=== PATIENT | female | born 1940 | race Caucasian/White ===

== ENCOUNTER 2016-06-09 09:55 | Outpatient (CLI) | payer MEDICARE, OTHER | END 2016-06-09 09:56 | disposition home or self-care (01) | DX: E11.9 Type 2 diabetes mellitus without complications (principal) ==

== ENCOUNTER 2016-07-28 13:24 | Outpatient (CLI) | payer MEDICARE, OTHER | END 2016-07-28 13:25 | disposition home or self-care (01) | DX: I42.9 Cardiomyopathy, unspecified (principal); I08.3 Combined rheumatic disorders of mitral, aortic and tricuspid valves ==

== ENCOUNTER 2016-08-03 12:29 | Outpatient (CLI) | payer MEDICARE, OTHER | END 2016-08-03 12:30 | disposition home or self-care (01) | DX: E04.1 Nontoxic single thyroid nodule (principal) ==

== ENCOUNTER 2016-10-19 07:24 | Outpatient (CLI) | payer MEDICARE, OTHER ==
[2016-10-19 13:29] LABS: ALBUMIN/GLOBULIN RATIO 1.4 (1.0-2.2); BILIRUBIN,TOTAL 0.7 mg/dL (0.2-1.0); BUN - BLOOD UREA NITROGEN 14 mg/dL (6-20); CALCIUM 9.2 mg/dL (8.5-10.3); CARBON DIOXIDE - CO2 30 mmol/L (21-32); CHLORIDE 99 mmol/L (101-111); CHOL/HDL RATIO 2.8 (<4.4); CHOLESTEROL 111 mg/dL; GFR - MDRD 54 (>89); GLUCOSE 145 mg/dL (70-100); HDL CHOLESTEROL 40 mg/dL; LDL/HDL RATIO 1.1 (<4.4); POTASSIUM 3.7 mmol/L (3.5-5.0); SODIUM 140 mmol/L (135-145); TOTAL PROTEIN 6.7 g/dL (6.7-8.2); TRIGLYCERIDES 130 mg/dL; VLDL CHOLESTEROL 26 mg/dL
[2016-10-19 13:43] LABS: HEMOGLOBIN A1C 0.84 g/dL
== END 2016-10-19 07:25 | disposition home or self-care (01) ==
LOC: LAB.WCP 07:24
PROVIDERS: ATTEND Physician Assistant Medical
DX: E11.9 Type 2 diabetes mellitus without complications (principal)
CPT/HCPCS: 36415; 80053; 80061; 83036

== ENCOUNTER 2017-01-20 08:00 | Outpatient (CLI) | payer MEDICARE, OTHER ==
[2017-01-20 13:59] LABS: ALBUMIN/GLOBULIN RATIO 1.2 (1.0-2.2); BILIRUBIN,TOTAL 0.9 mg/dL (0.2-1.0); CALCIUM 9.5 mg/dL (8.5-10.3); CREATININE 0.9 mg/dL (0.4-1.0); POTASSIUM 3.7 mmol/L (3.5-5.0); TOTAL PROTEIN 7.3 g/dL (6.7-8.2)
[2017-01-20 14:12] LABS: HEMOGLOBIN A1C 0.79 g/dL
== END 2017-01-20 08:01 | disposition home or self-care (01) ==
LOC: LAB.WCP 08:00
PROVIDERS: ATTEND Physician Assistant Medical
DX: E11.9 Type 2 diabetes mellitus without complications (principal); E03.9 Hypothyroidism, unspecified
CPT/HCPCS: 36415; 80053; 82043; 83036; 84443

== ENCOUNTER 2017-04-19 15:00 | Outpatient (CLI) | payer MEDICARE, OTHER ==
[2017-04-19 14:31] LABS: HEMOGLOBIN A1C 0.81 g/dL
[2017-04-19 14:53] LABS: ALBUMIN/GLOBULIN RATIO 1.2 (1.0-2.2); BILIRUBIN,TOTAL 0.5 mg/dL (0.2-1.0); BUN - BLOOD UREA NITROGEN 14 mg/dL (6-20); CALCIUM 9.4 mg/dL (8.5-10.3); CARBON DIOXIDE - CO2 28 mmol/L (21-32); CHLORIDE 101 mmol/L (101-111); CHOL/HDL RATIO 2.4 (<4.4); CHOLESTEROL 110 mg/dL; CREATININE 0.9 mg/dL (0.4-1.0); GFR - MDRD 61 (>89); GLUCOSE 154 mg/dL (70-100); HDL CHOLESTEROL 45 mg/dL; LDL/HDL RATIO 0.8 (<4.4); POTASSIUM 3.8 mmol/L (3.5-5.0); SODIUM 139 mmol/L (135-145); TOTAL PROTEIN 7.2 g/dL (6.7-8.2); TRIGLYCERIDES 135 mg/dL; VLDL CHOLESTEROL 27 mg/dL
== END 2017-04-19 15:01 | disposition home or self-care (01) ==
LOC: LAB.WCP 15:00
PROVIDERS: ATTEND Physician Assistant Medical
DX: E11.9 Type 2 diabetes mellitus without complications (principal)
CPT/HCPCS: 36415; 80053; 80061; 83036

== ENCOUNTER 2017-07-08 13:28 | Outpatient (CLI) | payer MEDICARE, OTHER ==
--- NOTE | 2017-07-11 16:14 | Mammography Report ---
DIGITAL SCREENING MAMMOGRAM: 07/08/2017 CLINICAL INDICATION: A 76-year-old, for screening. COMPARISON: 07/2015, 01/2014, 12/2012, 08/2011, 08/2010, 07/2009. TECHNIQUE: Routine CC and MLO projections were obtained of the breasts. Bilateral laterally exaggerated craniocaudal views. FINDINGS: The breasts demonstrate scattered fibroglandular densities bilaterally. Coarse, typically benign calcifications are present. No suspicious masses, clustered microcalcifications, or regions of architectural distortion are identified. IMPRESSION: BENIGN FINDINGS. RECOMMENDATION: ROUTINE ANNUAL SCREENING UNLESS OTHERWISE CLINICALLY INDICATED. BIRADS CATEGORY 2-BENIGN FINDINGS. STANDARD QUALIFYING STATEMENTS: 1. This examination was reviewed with the aid of Computer-Aided Detection (CAD). 2. A negative or benign imaging report should not delay biopsy if clinically suspicious findings are present. Consider surgical consultation if warranted. More than 5% of cancers are not identified by imaging. 3. Dense breasts may obscure an underlying neoplasm. TD: 07/11/2017 16:13
== END 2017-07-08 13:29 | disposition home or self-care (01) ==
LOC: DI.N 13:28
PROVIDERS: ATTEND Physician Assistant Medical
DX: Z12.31 Encounter for screening mammogram for malignant neoplasm of breast (principal)
CPT/HCPCS: 77067

== ENCOUNTER 2017-07-25 07:53 | Outpatient (CLI) | payer MEDICARE, OTHER ==
[2017-07-25 13:11] LABS: CREATININE 0.8 mg/dL (0.4-1.0)
[2017-07-25 13:22] LABS: HB2 TOTAL 13.7 g/dL; HEMOGLOBIN A1C 0.78 g/dL; HEMOGLOBIN A1C % 7.4 % (4.6-6.2)
== END 2017-07-25 07:54 | disposition home or self-care (01) ==
LOC: LAB.WCP 07:53
PROVIDERS: ATTEND Physician Assistant Medical
DX: E11.9 Type 2 diabetes mellitus without complications (principal)
CPT/HCPCS: 36415; 80048; 83036

== ENCOUNTER 2017-08-14 12:55 | Inpatient (IN) | payer MEDICARE, OTHER ==
--- NOTE | 2017-08-14 13:06 | ED Physician Documentation ---
History of Present Illness - Stated complaint Stated Complaint: DIFF BREATHING - Additonal information Additional information: hx from pt and family 76 f hx COPD no hx CAD CHF cough for few days chest pressure like an elephant started last night more soa and gurgling today no fever cough + leg edema - not new no bloody black BM tried nebs at home s relief Review of Systems Constitutional: denies: Fever, Chills Cardiac: reports: Chest pain / pressure Respiratory: reports: Dyspnea, Cough. denies: Wheezing GI: denies: Abdominal Pain, Nausea, Vomiting Musculoskeletal: reports: Extremity swelling Endocrine: denies: Easy bruising / bleeding Immunocompromised: denies: Immunocompromised PD PAST MEDICAL HISTORY - Present Medications Home Medications: Ambulatory Orders Medication Instructions Recorded Confirmed Albuterol Sulf [Ventolin Hfa 2 puffs INH Q4HR PRN 08/14/17 08/14/17 Inhaler] Aspirin [Aspirin EC] 81 mg PO DAILY 08/14/17 08/14/17 Carvedilol [Coreg] 25 mg PO BID 08/14/17 08/14/17 Cholecalciferol (Vitamin D3) 1 cap PO DAILY 08/14/17 08/14/17 [Vitamin D3] Fluticasone/Salmeterol [Advair 1 puffs INH BID 08/14/17 08/14/17 250-50 Diskus] Insulin Aspart [Novolog Flexpen] 1 - 10 unit SUBQ ACHS 08/14/17 08/14/17 Insulin Glargine [Lantus Solostar] 43 unit SUBQ DAILY 08/14/17 08/14/17 Levothyroxine [Synthroid] 100 mcg PO QDAC 08/14/17 08/14/17 Simvastatin [Zocor] 20 mg PO QPM 08/14/17 08/14/17 Telmisartan/Hydrochlorothiazid 1 each PO DAILY 08/14/17 08/14/17 [Micardis Hct 80-25 mg Tablet] amLODIPine [Norvasc] 5 mg PO DAILY 08/14/17 08/14/17 metFORMIN [Glucophage] 500 mg PO BIDWM 08/14/17 08/14/17 - Allergies Allergies/Adverse Reactions: Allergies Allergy/AdvReac Type Severity Reaction Status Date / Time Sulfa (Sulfonamide Allergy Anaphylaxis Verified 08/14/17 13:07 Antibiotics) PD ED PE NORMAL - Vitals Vital signs reviewed: Yes - General General: Alert and oriented X 3, Other (resp distress, merritt) - Neck Neck: Supple, no meningeal sign - Cardiac Cardiac: RRR - Respiratory Respiratory: No: No respiratory distress (severe resp distress, labored tachypneic, wet all the way up yan, no wheeze) - Derm Derm: Other (merritt face) - Extremities Extremities: No: No edema (+ yan symm pitting edema) - Neuro Neuro: Alert and oriented X 3, clinical training specialist 2-12 intact, No motor deficit, Normal speech Results - Vitals Vitals: Vital Signs - 24 hr 08/14/17 08/14/17 08/14/17 13:03 13:22 13:23 Temperature 37.2 C Heart Rate 85 76 68 Respiratory 24 34 H Rate Blood Pressure 143/88 H 143/88 H O2 Saturation 84 L 100 08/14/17 13:59 Temperature Heart Rate 68 Respiratory Rate Blood Pressure O2 Saturation Oxygen O2 Source BIPAP - EKG (time done) 1306 Rate: Rate (enter#) Rhythm: NSR Catharpin: Normal Ischemia: Other (TWI III) 1356 Rate: Rate (enter#) (65) Rhythm: NSR Catharpin: Normal Intervals: Normal CO Ischemia: Non specific changes - Labs Labs: Laboratory Tests 08/14/17 08/14/17 08/14/17 13:01 13:01 13:01 WBC 9.9 RBC 4.08 L Hgb 11.7 L Hct 34.9 L MCV 85.7 MCH 28.6 MCHC 33.4 RDW 15.5 H Plt Count 276 MPV 8.9 Neut # 7.6 H Lymph # 0.8 L Ogle # 1.4 H Eos # 0.0 Baso # 0.1 Absolute Nucleated RBC 0.00 Nucleated RBC % 0.0 Bld Gas Analysis Time Sample Site ABG pH ABG pCO2 ABG pO2 ABG HCO3 ABG Total CO2 ABG O2 Saturation ABG Base Excess Carlos Test O2 Delivery Device FiO2 EPAP IPAP Sodium 135 Potassium 4.0 Chloride 98 L Carbon Dioxide 25 Anion Gap 12.0 BUN 38 H Creatinine 1.3 H Estimated GFR (MDRD) 40 L Glucose 229 H Calcium 9.0 Troponin I 0.05 B-Natriuretic Peptide 08/14/17 08/14/17 13:01 13:50 WBC RBC Hgb Hct MCV MCH MCHC RDW Plt Count MPV Neut # Lymph # Ogle # Eos # Baso # Absolute Nucleated RBC Nucleated RBC % Bld Gas Analysis Time 1353 Sample Site LEFT RADIAL ABG pH 7.44 ABG pCO2 33 L ABG pO2 186 H* ABG HCO3 22.0 ABG Total CO2 23.0 ABG O2 Saturation 99 H ABG Base Excess -1.5 Carlos Test POSITIVE O2 Delivery Device BiPAP FiO2 60.00 EPAP 5 IPAP 12 Sodium Potassium Chloride Carbon Dioxide Anion Gap BUN Creatinine Estimated GFR (MDRD) Glucose Calcium Troponin I B-Natriuretic Peptide 755 H - Rads (name of study) CXR Radiology: See rad report (cardiomegaly and pulm edema) PD MEDICAL DECISION MAKING - ED course ED course: 76 f no hx CAD present with fairly acute new onset pulm edmea and resp failure placed on BiPAP with improved resp status after CXR confirmed pulm edema given asa lasix and nitro paste cause of new onset pulm edema a concern - certainly could be ACS - EKG X 2 s acute ischemia and first trop neg will admit to ICU for diuresis and cardiac wup spoke to hospitalist at 1435 - she declines to admit pt until serial enzymes have been done in the ED to rule out PR first, ordered 2nd trop and requested she come see the pt Departure - Departure Disposition: 66 [facility] DC/Xfer Clinical Impression: Renal insufficiency Respiratory failure Qualifiers: Chronicity: acute Respiratory failure complication: hypoxia Qualified Code(s): J96.01 - Acute respiratory failure with hypoxia Pulmonary edema Qualifiers: Chronicity: acute Qualified Code(s): J81.0 - Acute pulmonary edema Chest pain Qualifiers: Chest pain type: unspecified Qualified Code(s): R07.9 - Chest pain, unspecified Condition: Fair
[2017-08-14 13:22] LABS: BASOPHILS # (AUTO) 0.1 10^3/uL (0.0-0.1); BASOPHILS % (AUTO) 0.6 %; EOSINOPHILS % (AUTO) 0.1 %; HGB - HEMOGLOBIN 11.7 g/dL (12.0-16.0); LYMPHOCYTES # (AUTO) 0.8 10^3/uL (1.5-3.5); LYMPHOCYTES % (AUTO) 7.8 %; MEAN CORPUSCULAR HEMOGLOBIN 28.6 pg (27.0-31.0); MEAN CORPUSCULAR HGB CONC 33.4 g/dL (32.0-36.0); MEAN CORPUSCULAR VOLUME 85.7 fL (81.0-99.0); MEAN PLATELET VOLUME 8.9 fL (7.9-10.8); MONOCYTES # (AUTO) 1.4 10^3/uL (0.0-1.0); MONOCYTES % (AUTO) 14.4 %; NEUTROPHILS # (AUTO) 7.6 10^3/uL (1.5-6.6); NEUTROPHILS % (AUTO) 77.1 %; PLT - PLATELET COUNT 276 10^3/uL (130-450); RED BLOOD COUNT 4.08 10^6/uL (4.20-5.40); RED CELL DISTRIBUTION WIDTH 15.5 % (12.0-15.0); WHITE BLOOD COUNT 9.9 x10^3/uL (4.8-10.8)
[2017-08-14] MEDS ORDERED: FUROSEMIDE 40 MG/4 ML VIAL IVP STA (13:46)
[2017-08-14] MEDS ORDERED: ASPIRIN CHEW 81 MG TABLET PO STA (13:46)
[2017-08-14] MEDS ORDERED: NITROGLYCERIN 2% PASTE TOP STA (13:46)
[2017-08-14 13:48] LABS: CREATININE 1.3 mg/dL (0.4-1.0)
[2017-08-14 13:58] LABS: ABG PCO2 33 mmHg (34-45); ABG PH 7.44 (7.35-7.45)
--- NOTE | 2017-08-14 13:58 | XRAY Report ---
EXAM: CHEST RADIOGRAPHY EXAM DATE: 08/14/2017 01:26 PM. CLINICAL HISTORY: Altered mental status COMPARISON: Chest x-ray 12/23/2011. TECHNIQUE: 1 view. FINDINGS: Lungs/Pleura: Low lung volumes with pulmonary cephalization and hazy opacities in the perihilar regio ns. Mediastinum: Cardiomegaly. Atherosclerosis. Other: None. IMPRESSION: Cardiomegaly with pulmonary cephalization and hazy perihilar opacities suggestive of pulm onary edema. [facility] Referring Provider Line: [phone] SITE ID: [id number]
[2017-08-14 13:59] LABS: ABG BASE EXCESS -1.5 mmol/L (-2.0-3.0); ABG OXYGEN SATURATION 99 % (94-98); ALLEN TEST POSITIVE
[2017-08-14 14:02] LABS: ABG PO2 186 mmHg (80-100)
[2017-08-14] MEDS ORDERED: ACETAMINOPHEN 325 MG TABLET PO PRN (15:29)
[2017-08-14] MEDS ORDERED: ONDANSETRON 4 MG/2 ML VIAL IVP PRN (15:29)
[2017-08-14] MEDS ORDERED: ALBUTEROL NEB 2.5 MG/3 ML INH PRN ×2 (16:24→16:54)
[2017-08-14] MEDS: INSULIN ASPART 300 UNIT/3 ML PEN SUBQ SCH ×2 (17:37→21:35)
[2017-08-14] MEDS: SODIUM CHLORIDE FLUSH 0.9% 10 ML SYRINGE IVP PRN ×2 (17:38→19:35)
[2017-08-14] MEDS: FORMOTEROL FUMARATE NEB 20 MCG/2 ML INH SCH (18:05)
[2017-08-14] MEDS: BUDESONIDE 0.5 MG/2 ML NEB INH SCH (18:05)
--- NOTE | 2017-08-14 18:53 | HISTORY & PHYSICAL EXAMINATION ---
DATE OF SERVICE: 08/14/2017 Physician: Paola Sam MD CHIEF COMPLAINT: Shortness of breath. SOURCE OF HISTORY: At the time of admission, the patient was on BiPAP, most of the history was obtained from her daughter. HISTORY OF PRESENT ILLNESS: Ms. Ashli Cruz is a 76-year-old female with multiple chronic medical problems including type 2 diabetes, hypertension, and hypothyroidism. She also has history of COPD. The patient lives with her daughter; the daughter brought her to the ER today and she provided most of the history. The patient does not have reported history of coronary artery disease, although she saw a material hauler in [place] in the past was told that her heart was "okay." Reviewing our medical record, however, the patient had an echocardiogram in July 2016. At that time, she was found with left ventricular hypertrophy, normal ejection fraction between 50-55%, right heart enlargement, moderate mitral regurgitation and tricuspid regurgitation as well. Based on this echocardiogram, it seems that she does have history of right- sided heart failure. The patient's daughter tells me the patient has history of longstanding lymphedema for which she took Lasix. The Lasix made her go to the bathroom frequently. Therefore, she discontinued the Lasix several years ago. They do not know about history of heart failure. The patient's diabetes had been stable. Last hemoglobin A1c was between 6.8 and 7. The patient was fully functional, she was in her usual state of health up to about 3 days ago, at which time she started with cough and shortness of breath. Did not report chest discomfort. As she was coughing more, she became weak and dizzy. During the past few days, she developed some wheezes and her respiratory distress got progressively worse. She does not report weight gain or lower extremity swelling above her baseline. Around noontime on 08/14/2017, she asked her daughter to bring her to the ER as she felt being distressed. Upon presentation to the ER, the patient was found with respiratory distress and was started on noninvasive BiPAP ventilation. Her initial vital signs included temperature of 37.2, heart rate in the 80s, blood pressure 140/88, oxygen saturation 84%on room air, respiration rate of 34. Being on BiPAP she stabilized and when I was at the bedside in the ER, she reported improvement, breathing better. Reviewing the ER workup: Chest x-ray showed pulmonary edema. Laboratories showed negative troponin twice, elevated BNP 755, creatinine 1.3, BUN 38. ABG 7.44/33/186 and that was on 60% FIO2/on BiPAP 09/17. White blood cell count was normal at 9.9, hemoglobin 11.7. EKG showed nonspecific changes and right axis. Blood glucose was 229. PAST MEDICAL HISTORY 1. Type 2 diabetes/insulin-dependent. 2. Thyroid disease on thyroid supplements. 3. Hypertension. 4. Chronic obstructive pulmonary disease. SOCIAL HISTORY: The patient lives with her daughter. She is a nonsmoker, uses a cane and occasionally a walker to ambulate. Although the patient is a lifelong nonsmoker, she was exposed to secondhand smoke all her life. Both her mother and father were heavy smokers and her was a heavy smoker as well. PRIMARY CARE PROVIDER: HU Mei. FAMILY HISTORY: Positive for emphysema in the mother and coronary artery disease in the father who of heart disease at age 55. REVIEW OF SYSTEMS: Please see pertinent positives listed above at history of present illness. There was no additional complaint on the 12-point review. PHYSICAL EXAMINATION VITAL SIGNS: Please see listed above at history of present illness. GENERAL: The patient is a well-developed female who was on BiPAP. RESPIRATORY: Reasonably good air entry on BiPAP with decreased air entry above the bases and some crackling up to the midlung zones. CARDIOVASCULAR: S1, S2. Regular. I could not hear a pathologic murmur in the setting of transmitted airway sounds. ABDOMEN: Obese, benign. Bowel sounds present. LYMPH: Pitting pedal edema, minimal, bilaterally symmetric. NEUROLOGIC: Alert, oriented, nonfocal. PSYCHIATRIC: Cooperative. SKIN: Without jaundice or pallor. MUSCULOSKELETAL: Truncal obesity. OUTPATIENT MEDICATIONS: Included 1. Aspirin. 2. Insulin glargine. 3. Metformin. 4. Levothyroxine. 5. Simvastatin. 6. Advair. 7. NovoLog sliding scale. 8. Telmisartan. 9. Hydrochlorothiazide. 10. Albuterol. 11. Amlodipine. 12. Carvedilol. 13. Vitamin D. ASSESSMENT/ACTIVE ISSUES/DIAGNOSES 1. Acute congestive heart failure with history of right-sided heart failure and valvular heart disease. Most likely the patient has worsening mitral valve disease, which could contribute to her decompensation. She seems to be in left-sided heart failure today, not in right-sided as her previous echocardiogram described. 2. Acute renal failure in the setting of congestive heart failure exacerbation/ cardiac decompensation. Notably, the patient's baseline renal function is around 0.7. Today, creatinine is 1.3. This is more than a 30% increase, fulfilling the diagnosis for acute renal failure. 3. Ruling out for acute coronary syndrome. 4. Hyperglycemia/history of diabetes. 5. Hypoxic respiratory failure requiring noninvasive ventilation on BiPAP. 6. History of chronic obstructive pulmonary disease. Today, clinical examination and overall presentation does not suggest chronic obstructive pulmonary disease exacerbation. Primary etiology seems cardiac. PLAN AND ORDERS 1. Patient is admitted to the intensive care unit, requiring noninvasive ventilation. We will continue her on BiPAP and titrate off as tolerated. Emergency room physician started nitro paste and IV Lasix. We will continue. Follow electrolytes and renal function. We will replace electrolytes as appropriate. 2. Continue cycling troponins and monitor on telemetry. 3. Echocardiogram. 4. Regarding diabetes, we will continue long-acting insulin if the patient takes appropriate oral intake and cover blood glucose on additional sliding scale. 5. Regarding outpatient medications, I will hold metformin, telmisartan, and hydrochlorothiazide as the patient has acute kidney injury, plus her blood pressure will likely not tolerate IV Lasix, nitrate, plus all other diuretics. We will continue Coreg. 6. We will continue aspirin and Zocor as well. 7. Depending on the echocardiogram result, if the patient has severe valve abnormality, then we might need to call a material hauler to coordinate this patient's care. 8. Regarding renal failure, as it is in the setting of heart failure, the expectation is that renal function will paradoxically improve on diuresis. 9. Regarding chronic obstructive pulmonary disease, clinical picture does not suggest exacerbation. I will continue home inhalers. 10. Code status was discussed with the patient and with her daughter. She is FULL CODE. 11. The patient will need cardiology consultation that can be done as outpatient if we can stabilize and discharge her, or she might need to transfer to another facility. 12. Deep venous thrombosis prophylaxis. ATTESTATION: I certify that the reasonable expectation for this patient is to be hospitalized for at least 48 hours; however, to discharge or transfer to another facility in less than 96 hours. TD: 08/14/2017 18:52 MTDD
[2017-08-14] MEDS: FUROSEMIDE 40 MG/4 ML VIAL IVP SCH (19:35)
[2017-08-14] MEDS ORDERED: ATORVASTATIN 10 MG TABLET PO SCH (21:00)
[2017-08-14] MEDS: CARVEDILOL 12.5 MG TABLET PO SCH (21:35)
[2017-08-14] MEDS ORDERED: MIN OIL/DIMETHICON/COCONUT OIL 92 GM TUBE TOP PRN (22:34)
[2017-08-15] MEDS ORDERED: MORPHINE 2 MG/ML SYRINGE IVP PRN (00:15)
[2017-08-15] MEDS: SODIUM CHLORIDE FLUSH 0.9% 10 ML SYRINGE IVP SCH ×2 (00:20→09:59)
[2017-08-15] MEDS ORDERED: MORPHINE 2 MG/ML SYRINGE ONE (00:28)
[2017-08-15] MEDS ORDERED: FUROSEMIDE 40 MG/4 ML VIAL IVP STA (00:34)
[2017-08-15] MEDS: SODIUM CHLORIDE FLUSH 0.9% 10 ML SYRINGE IVP PRN (00:41)
[2017-08-15 01:12] LABS: ABG PH 7.45 (7.35-7.45)
[2017-08-15 01:13] LABS: ABG BASE EXCESS 2.6 mmol/L (-2.0-3.0); ABG HCO3 26.7 mmol/L (22.0-26.0); ABG OXYGEN SATURATION 95 % (94-98); ABG PCO2 40 mmHg (34-45); ABG PO2 79 mmHg (80-100); ABG TCO2 27.9 MMOL/L (21.0-29.0); ALLEN TEST NEGATIVE
--- NOTE | 2017-08-15 01:21 | XRAY Preliminary Report ---
Exam: XR CHEST 1 VIEW X-RAY IMPRESSION: 1. Confluent left lung base opacity could reflect atelectasis or pneumonia. 2. Minimal CHF appears improved from prior day. [facility] SITE ID: [id number]
--- NOTE | 2017-08-15 01:41 | XRAY Report ---
EXAM: CHEST RADIOGRAPHY EXAM DATE: 08/15/2017 01:08 AM. CLINICAL HISTORY: Worsening respiratory failure. COMPARISON: Prior day. TECHNIQUE: 1 view. FINDINGS: Lungs/Pleura: Diffuse mild interstitial opacities. More confluent left lung base opacity. No large ef fusion. No gross pneumothorax. Mediastinum: Moderate cardiomegaly. No mediastinal shift. Other: None. IMPRESSION: 1. Confluent left lung base opacity could reflect atelectasis or pneumonia. 2. Minimal CHF appears improved from prior day. [facility] Referring Provider Line: [phone] SITE ID: [id number]
[2017-08-15] MEDS ORDERED: AZITHROMYCIN INJ 500 MG in SODIUM CHLORIDE 0.9% 250 ML IV SCH (03:00)
[2017-08-15] MEDS ORDERED: cefTRIAXone 2 GM in SODIUM CHLORIDE 0.9% MINIBAG 100 ML IV SCH (03:00)
[2017-08-15] MEDS ORDERED: SODIUM CHLORIDE 0.9% 500 ML IV PRN (03:53)
[2017-08-15 04:19] LABS: BASOPHILS % (AUTO) 0.1 %; EOSINOPHILS % (AUTO) 0.1 %; HGB - HEMOGLOBIN 11.4 g/dL (12.0-16.0); LYMPHOCYTES # (AUTO) 0.5 10^3/uL (1.5-3.5); LYMPHOCYTES % (AUTO) 7.5 %; MEAN CORPUSCULAR HEMOGLOBIN 27.9 pg (27.0-31.0); MEAN CORPUSCULAR HGB CONC 32.6 g/dL (32.0-36.0); MEAN CORPUSCULAR VOLUME 85.7 fL (81.0-99.0); MEAN PLATELET VOLUME 8.3 fL (7.9-10.8); MONOCYTES # (AUTO) 0.9 10^3/uL (0.0-1.0); MONOCYTES % (AUTO) 12.6 %; NEUTROPHILS # (AUTO) 5.4 10^3/uL (1.5-6.6); NEUTROPHILS % (AUTO) 79.7 %; PLT - PLATELET COUNT 276 10^3/uL (130-450); RED BLOOD COUNT 4.07 10^6/uL (4.20-5.40); RED CELL DISTRIBUTION WIDTH 15.1 % (12.0-15.0); WHITE BLOOD COUNT 6.8 x10^3/uL (4.8-10.8)
[2017-08-15 04:29] LABS: ALBUMIN 3.5 g/dL (3.2-5.5); ALBUMIN/GLOBULIN RATIO 0.9 (1.0-2.2); BILIRUBIN,TOTAL 0.9 mg/dL (0.2-1.0); CALCIUM 8.3 mg/dL (8.5-10.3); CREATININE 1.1 mg/dL (0.4-1.0); TOTAL PROTEIN 7.3 g/dL (6.7-8.2)
[2017-08-15 04:40] LABS: MAGNESIUM 1.8 mg/dL (1.7-2.8); PHOSPHORUS 4.6 mg/dL (2.5-4.6)
[2017-08-15] MEDS: POTASSIUM CHLORIDE 20 MEQ TABLET PO SCH ×2 (05:28→11:14)
[2017-08-15] MEDS: FUROSEMIDE 40 MG/4 ML VIAL IVP SCH (05:28)
[2017-08-15] MEDS: BUDESONIDE 0.5 MG/2 ML NEB INH SCH (05:41)
[2017-08-15] MEDS: FORMOTEROL FUMARATE NEB 20 MCG/2 ML INH SCH (05:44)
[2017-08-15 06:09] LABS: ABG BASE EXCESS 0.9 mmol/L (-2.0-3.0); ABG HCO3 25.9 mmol/L (22.0-26.0); ABG OXYGEN SATURATION 96 % (94-98); ABG PCO2 43 mmHg (34-45); ABG PO2 83 mmHg (80-100); ABG TCO2 27.2 MMOL/L (21.0-29.0); ALLEN TEST NEGATIVE
[2017-08-15] MEDS ORDERED: LEVOTHYROXINE 100 MCG TABLET PO SCH (07:00)
[2017-08-15] MEDS ORDERED: POTASSIUM CHLOR 20 MEQ/100 ML 20 MEQ/100 ML BAG IV SCH ×2 (07:00→08:00)
[2017-08-15] MEDS: POTASSIUM CHLOR 10 MEQ/100 ML 10 MEQ/100 ML BAG IV SCH ×4 (08:06→12:05)
[2017-08-15] MEDS: INSULIN ASPART 300 UNIT/3 ML PEN SUBQ SCH ×2 (08:30→12:21)
[2017-08-15] MEDS ORDERED: ENOXAPARIN 40 MG/0.4 ML SYRINGE SUBQ SCH (09:00)
[2017-08-15] MEDS ORDERED: ASPIRIN EC 81 MG TABLET PO SCH (09:00)
[2017-08-15] MEDS ORDERED: CHOLECALCIFEROL 1,000 UNIT TABLET PO SCH (09:00)
[2017-08-15] MEDS ORDERED: POLYETHYLENE GLYCOL 3350 17 GM PACKET PO SCH (09:00)
[2017-08-15] MEDS ORDERED: INSULIN GLARGINE 300 UNIT/3 ML PEN SUBQ SCH (09:00)
[2017-08-15] MEDS ORDERED: FAMOTIDINE 20 MG/50 ML 50 ML IV SCH (09:00)
[2017-08-15] MEDS: CARVEDILOL 12.5 MG TABLET PO SCH (10:10)
[2017-08-15] MEDS ORDERED: ENOXAPARIN 80 MG/0.8 ML SYRINGE SUBQ ONE (10:45)
[2017-08-15] MEDS ORDERED: IOPAMIDOL-300 100 ML VIAL ONE (12:20)
--- NOTE | 2017-08-15 13:06 | Discharge Plan ---
Discharge Plan Disposition: 02 Transfer Acute Care Hosp Condition: Serious Activity Restrictions: Activity as Tolerated No Smoking: If you smoke, Please STOP! Call for help. Follow-up with: Grace Christian PA-C [Primary Care Provider] -
[2017-08-15 13:33] VITALS: BP 126/65
--- NOTE | 2017-08-15 17:29 | DISCHARGE SUMMARY ---
Physician: Lauren Sam MD DATE OF ADMISSION: 08/14/2017 DATE OF DISCHARGE: 08/15/2017 Please note that the patient is getting discharged/transferred to an acute care hospital, to the [facility] in [place], requiring higher level of care including cardiology, pulmonology, and intensive care. CODE STATUS: FULL CODE. DISCHARGE DIAGNOSES 1. Respiratory failure/hypoxemic requiring noninvasive ventilation on BiPAP. a. Severe right-sided congestive heart failure, final read of echocardiogram is pending, but this was the preliminary diagnosis. b. Left-sided heart failure with pulmonary edema and suspect worsening mitral valve disease. c. Ruled out for acute coronary syndrome, had 3 sets of negative troponins ; EKG was abnormal but did not show acute ischemic sign. d. Pulmonary embolism is possible with right-sided heart failure, and per cardiology recommendation a CT angiograph of the chest was ordered; however, it was not completed prior to transfer, and we recommend this study to be completed when the patient arrives to [place]. Of note, she was covered on therapeutic Lovenox anticoagulation. e. Possible pneumonia; although the patient was afebrile, did not have elevated white blood cell count, and the clinical history did not suggest pneumonia, due to lung infiltrates and significant respiratory failure/critical illness, she received community- acquired pneumonia coverage. f. History of chronic obstructive pulmonary disease, was found without exacerbation during this hospital admission; however, given the severity of respiratory failure, received treatment with steroids, proton pump inhibitor, and Xopenex. 2. Acute renal failure/acute kidney injury in the setting of congestive heart failure. Baseline creatinine is around 0.7 and admission creatinine was 1.3. Creatinine paradoxically improved on diuretic therapy, and discharge creatinine was 1.1. 3. Hyperglycemia/history of insulin-dependent diabetes, blood glucose was controlled on insulin sliding scale during the hospital stay. 4. Encephalopathy/lethargy in the setting of critical illness. DISCHARGE MEDICATIONS: Patient was discharged with ACLS transfer to the [facility] in [place]. Prior to discharge she was therapeutically covered and anticoagulated with Lovenox. She received nitroglycerin paste and was discharged, continuing noninvasive ventilation on BiPAP. Prior to discharge she also received antibiotics for pneumonia, steroids for COPD, and further management is signed out and will be deferred to the [place] team. DISCHARGE CONDITION VITAL SIGNS: Vital signs were stable. Reviewed per electronic medical record. Blood pressure was 136/65, heart rate 80, temperature 37.1, respiratory rate 28 on the BiPAP, BiPAP was at 12/6, 50% FiO2; oxygen saturation on that setting was 100%. GENERAL: Patient was lethargic, but arousable. Neurologically nonfocal. RESPIRATORY: Good air entry on BiPAP; however, rhonchi and crackles still between the bases and mid lung zones. ABDOMEN: Benign. CARDIOVASCULAR: S1, S2. Regular. BRIEF PRESENTATION AND HOSPITAL COURSE: Patient is a 76-year-old white female who was admitted to the [facility] with cough, chest discomfort, and shortness of breath. She was found with respiratory failure and required noninvasive ventilation on BiPAP. She ruled out for acute coronary syndrome. Chest x-ray showed pulmonary edema, and the impression was that she decompensated due to congestive heart failure exacerbation; on clinical grounds and based on the chest x-ray, also considering elevated BNP around 600, she was in left-sided heart failure. Notably, she has an echocardiogram in our system from July 2016 that showed left ventricular hypertrophy, significant right-sided heart enlargement, moderate mitral regurgitation ,and moderate tricuspid regurgitation. At that time, a year ago, she had normal ejection fraction about 50% to 55%. On the first hospital day, she was diuresed and responded well, being overall 1200 mL negative with her fluid balance. She was treated with nitrates and was continued on beta polina. Overnight, however, she had worsening respiratory distress and required adjustment of BiPAP setting with increased pressures. She remained hypoxemic and could not tolerate being off the BiPAP. On the second hospital day, we tried to titrate her off the BiPAP, and, even for a short period of time, she could not tolerate it. Given her ongoing respiratory failure, actually worsening clinical situation, she had a repeat chest x-ray which showed significant cardiomegaly and resolving congestive heart failure; however, possibly a focal infiltrate. Therefore, she was started on pneumonia coverage as well. Notably, since admission, she was given steroids for possible COPD exacerbation, although she was not really wheezing, and her clinical presentation and workup suggested cardiac origin rather than pulmonary. Given her critical illness, however, she received treatment for all possible abnormalities. As she did not improve on aggressive treatment, I contacted the covering cardiology and intensive care at the [facility] in [place]. I spoke with Dr. Rojas, public affairs specialist, and Dr. Vasquez pattern technician. They graciously accepted this patient to transfer to their hospital, and that is how she was transferred. Time spent in the care of this patient was 1-1/2 hours, which included coordination of her care with Cardiology, Pulmonology, and Nursing regarding the transfer. More than 50 % of the time was spent with coordination of the care. cc: Grace Christian PA-C TD: 08/15/2017 16:42 HUY
== END 2017-08-15 14:00 | disposition short-term general hospital (02) | DRG 291 ==
LOC: ED 12:55 → ICU 15:29
PROVIDERS: ADMIT Internal Medicine; ATTEND Internal Medicine
DX: J96.01 Acute respiratory failure with hypoxia (principal); J81.0 Acute pulmonary edema; R07.89 Other chest pain; N28.9 Disorder of kidney and ureter, unspecified; J44.9 Chronic obstructive pulmonary disease, unspecified; I11.0 Hypertensive heart disease with heart failure; J18.9 Pneumonia, unspecified organism; J96.91 Respiratory failure, unspecified with hypoxia; G93.40 Encephalopathy, unspecified; I26.99 Other pulmonary embolism without acute cor pulmonale; J44.0 Chronic obstructive pulmonary disease with (acute) lower respiratory infection; N17.9 Acute kidney failure, unspecified; J44.1 Chronic obstructive pulmonary disease with (acute) exacerbation; Z68.42 Body mass index [BMI] 45.0-49.9, adult; I50.1 Left ventricular failure, unspecified; I50.814 Right heart failure due to left heart failure; E11.65 Type 2 diabetes mellitus with hyperglycemia; E03.9 Hypothyroidism, unspecified; I08.1 Rheumatic disorders of both mitral and tricuspid valves; I89.0 Lymphedema, not elsewhere classified; E66.9 Obesity, unspecified; Z77.22 Contact with and (suspected) exposure to environmental tobacco smoke (acute) (chronic); Z79.4 Long term (current) use of insulin; Z79.82 Long term (current) use of aspirin
CPT/HCPCS: 36415; 36600; 71045; 80048; 80053; 82803; 83735; 83880; 84100; 84484; 85025; 87150; 93005; 93306; 94640; 94660; 96374; 99283; 99284

== ENCOUNTER 2017-10-20 07:54 | Outpatient (CLI) | payer MEDICARE, OTHER ==
[2017-10-20 12:16] LABS: BASOPHILS % (AUTO) 0.4 %; EOSINOPHILS # (AUTO) 0.2 10^3/uL (0.0-0.7); EOSINOPHILS % (AUTO) 3.3 %; HGB - HEMOGLOBIN 13.7 g/dL (12.0-16.0); LYMPHOCYTES # (AUTO) 2.3 10^3/uL (1.5-3.5); LYMPHOCYTES % (AUTO) 31.7 %; MEAN CORPUSCULAR HEMOGLOBIN 28.9 pg (27.0-31.0); MEAN CORPUSCULAR HGB CONC 32.6 g/dL (32.0-36.0); MEAN CORPUSCULAR VOLUME 88.8 fL (81.0-99.0); MEAN PLATELET VOLUME 9.4 fL (7.9-10.8); MONOCYTES # (AUTO) 0.7 10^3/uL (0.0-1.0); MONOCYTES % (AUTO) 9.8 %; NEUTROPHILS % (AUTO) 54.8 %; PLT - PLATELET COUNT 297 10^3/uL (130-450); RED BLOOD COUNT 4.72 10^6/uL (4.20-5.40); RED CELL DISTRIBUTION WIDTH 16.4 % (12.0-15.0); WHITE BLOOD COUNT 7.2 x10^3/uL (4.8-10.8)
[2017-10-20 12:34] LABS: ALBUMIN 3.7 g/dL (3.2-5.5); ALBUMIN/GLOBULIN RATIO 1.2 (1.0-2.2); ALKALINE PHOSPHATASE 56 IU/L (42-121); ALT ALANINE AMINOTRANSFERASE 15 IU/L (10-60); AST ASPARTATE AMINOTRANSFERASE 25 IU/L (10-42); BILIRUBIN,TOTAL 0.5 mg/dL (0.2-1.0); BUN - BLOOD UREA NITROGEN 25 mg/dL (6-20); CALCIUM 9.5 mg/dL (8.5-10.3); CARBON DIOXIDE - CO2 30 mmol/L (21-32); CHLORIDE 98 mmol/L (101-111); CHOL/HDL RATIO 2.4 (<4.4); CHOLESTEROL 100 mg/dL; CREATININE 1.2 mg/dL (0.4-1.0); GFR - MDRD 43 (>89); GLUCOSE 133 mg/dL (70-100); HDL CHOLESTEROL 42 mg/dL; LDL CHOLESTEROL,CALCULATED 30 mg/dL; LDL/HDL RATIO 0.7 (<4.4); SODIUM 138 mmol/L (135-145); TOTAL PROTEIN 6.8 g/dL (6.7-8.2); VLDL CHOLESTEROL 28 mg/dL
[2017-10-20 12:51] LABS: HB2 TOTAL 15.6 g/dL; HEMOGLOBIN A1C 0.85 g/dL; HEMOGLOBIN A1C % 7.1 % (4.6-6.2)
== END 2017-10-20 07:55 | disposition home or self-care (01) ==
LOC: LAB.WCP 07:54
PROVIDERS: ATTEND Family Medicine
DX: I27.20 Pulmonary hypertension, unspecified (principal); E11.9 Type 2 diabetes mellitus without complications; I10 Essential (primary) hypertension
CPT/HCPCS: 36415; 80053; 80061; 83036; 83721; 85025

== ENCOUNTER 2017-12-15 06:40 | Day surgery (SDC) | payer MEDICARE, OTHER ==
[~2017-12-15 06:40] MED LIST: CYCLOPENTOLATE 1% OPHTH DROPS 2 ML ONE; KETOROLAC 0.45% OPHTH DROPS ONE; LACTATED RINGERS 1,000 ML IV ONE; PHENYLEPHRINE 2.5% OPHTH 2 ML DROPS ONE; PROPARACAINE 0.5% OPHTH DROPS 15 ML ONE
[2017-12-15] MEDS ORDERED: PHENYLEPHRINE 2.5% OPHTH 2 ML DROPS LEFTEYE ONE (06:58)
[2017-12-15] MEDS ORDERED: KETOROLAC 0.45% OPHTH DROPS LEFTEYE ONE (06:58)
[2017-12-15] MEDS ORDERED: CYCLOPENTOLATE 1% OPHTH DROPS 2 ML LEFTEYE ONE (06:58)
[2017-12-15] MEDS ORDERED: PROPARACAINE 0.5% OPHTH DROPS 15 ML LEFTEYE ONE ×2 (06:58→08:12)
[2017-12-15] MEDS ORDERED: TIMOLOL 0.5% OPHTH DROPS ONE (07:14)
[2017-12-15] MEDS ORDERED: PROPARACAINE 0.5% OPHTH DROPS 15 ML ONE (07:14)
[2017-12-15] MEDS ORDERED: BRIMONIDINE 0.2% OPHTH DROPS 5 ML ONE (07:14)
--- NOTE | 2017-12-15 07:27 | ANESTHESIA ---
Pre-Anesthesia VS, & Labs - Diagnosis Left senile combined cataract - Procedure Left catarct extraction with intraocular lens Vital Signs: Temp Pulse Resp BP Pulse Ox 36.2 C L 18 152/96 H 98 12/15/17 06:50 12/15/17 06:50 12/15/17 06:50 12/15/17 06:50 HR 87 Height 5 ft 3 in Weight (kg) 109.8 kg Body Mass Index 46.1 - NPO >8 hours (except apple juice at 4am for BG of 83) - Is Patient ?: Not Applicable Home Medications and Allergies Home Medications: Ambulatory Orders Medication Instructions Recorded Confirmed Albuterol Sulf [Ventolin Hfa 2 puffs INH Q4HR PRN 08/14/17 12/14/17 Inhaler] Aspirin [Aspirin EC] 81 mg PO DAILY 08/14/17 12/14/17 Fluticasone/Salmeterol [Advair 1 puffs INH BID 08/14/17 12/14/17 250-50 Diskus] Insulin Aspart [Novolog Flexpen] 1 - 10 unit SUBQ ACHS 08/14/17 12/14/17 Insulin Glargine [Lantus Solostar] 43 unit SUBQ DAILY 08/14/17 12/14/17 Levothyroxine [Synthroid] 100 mcg PO QDAC 08/14/17 12/14/17 Simvastatin [Zocor] 20 mg PO QPM 08/14/17 12/14/17 Telmisartan/Hydrochlorothiazid 1 each PO DAILY 08/14/17 12/14/17 [Micardis Hct 80-25 mg Tablet] amLODIPine [Norvasc] 5 mg PO DAILY 08/14/17 12/14/17 metFORMIN [Glucophage] 500 mg PO BIDWM 08/14/17 12/14/17 Brimonidine 0.1% Ophth Drops 1 drops EACHEYE BID 12/14/17 12/14/17 [Alphagan P 0.1% Ophth Drops] Furosemide 40 mg PO DAILY 12/14/17 12/14/17 Latanoprost 0.005% Ophth Drops 1 drops EACHEYE DAILY 12/14/17 12/14/17 [Xalatan Ophth Drops] Potassium Chloride 20 tab PO BID 12/14/17 12/14/17 Timolol [Betimol] 1 drops EACHEYE BID 12/14/17 12/14/17 Allergies/Adverse Reactions: Allergies Allergy/AdvReac Type Severity Reaction Status Date / Time Sulfa (Sulfonamide Allergy Anaphylaxis Verified 08/14/17 13:07 Antibiotics) Anes History & Medical History - Anesthetic History Anesthesia Complications: reports: No previous complications - Medical History Cardiovascular: reports: Congestive heart failure, Hypertension, High cholesterol Pulmonary: reports: COPD Gastrointestinal: reports: None Urinary: reports: Incontinence, Chronic bladder infection Musculoskeletal: reports: Osteoporosis Endocrine/Autoimmune: reports: Type 2 diabetes, HyPOthyroidism Skin: reports: None Smoking Status: Former smoker (quit 30 years ago) Psychosocial: reports: No issues indicated - Surgical History General: Colonoscopy Orthopedic: Knee replacement Dermatologic: Skin cancer surgery Exam General: Alert Dental: Dentures full Upper, Other (edentulous) Mouth Openin Fingerbreadth Neck Mobility: Normal Mallampati classification: III Respiratory: Lungs clear, Decreased breath sounds (at bases) Cardiovascular: Regular rate, Normal S1, Normal S2, Other (2/6 systolic murmur) Mental/Cognitive Status: Alert/Oriented X3, Normal for patient Cognitive Status: Within normal limits Plan Anesthesia Type: MAC Consent for Procedure(s) Verified and Reviewed: Yes Code Status: Attempt Resuscitation ASA classification: 3-Severe systemic disease Is this case an emergency?: No
[2017-12-15] MEDS ORDERED: VANCOMYCIN OPHTHALMI 8MG/0.8ML 8 MG/0.8 ML SYRINGE IO ONE ×2 (08:07)
[2017-12-15] MEDS ORDERED: BRIMONIDINE 0.2% OPHTH DROPS 5 ML OPTH ONE (08:09)
[2017-12-15] MEDS ORDERED: EPINEPHrine 1 MG/ML AMP IR ONE (08:09)
[2017-12-15] MEDS ORDERED: CHONDR SULF/HYALURONATE SYRINGE IO ONE (08:09)
[2017-12-15] MEDS ORDERED: TIMOLOL 0.5% OPHTH DROPS OPTH ONE (08:10)
[2017-12-15] MEDS ORDERED: MIDAZOLAM 2 MG/2 ML VIAL IVP ONE (08:10)
[2017-12-15] MEDS ORDERED: BSS/LIDOCAINE/EPINEPHRINE 1 ML SYRINGE IO ONE ×2 (08:10)
[2017-12-15] MEDS ORDERED: TRIAMCIN/MOXIFLOX/VANCO 1 ML VIAL IO ONE ×2 (08:10)
[2017-12-15 08:28] VITALS: BP 103/64
--- NOTE | 2017-12-15 08:49 | OPERATIVE REPORT ---
DATE OF SERVICE: 12/15/2017 Physician: Chava Cruz MD PREOPERATIVE DIAGNOSIS: Visually significant cataract, left eye. Cataract surgery was performed on the right eye on 06/17/2011. POSTOPERATIVE DIAGNOSES: Visually significant cataract, left eye. Cataract surgery was performed on the right eye on 06/17/2011. PROCEDURE: Phacoemulsification with posterior chamber intraocular lens implant, left eye. SURGEON: Chava Cruz MD ANESTHESIA: Monitored anesthesia care. COMPLICATIONS: None. 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 Best corrected visual acuity was 20/30 with glare to 26/30 in the left eye. Indications for surgery are overall decrease in vision, difficulty reading ; difficulty seeing words, closed caption or game scores on TV; difficulty driving in low light or at night, difficulty driving at night because of headlights from other vehicles, and/or street lights a nd difficulty with glare or bright lights in any situation. She was consented at length concerning r isks and benefits of cataract surgery, after which she expressed a desire to proceed with surgery. OPERATIVE PROCEDURE: The patient was taken into OR #3 and placed under monitored anesthesia care. A surgical timeout was conducted confirming correct patient, correct procedure, and correct surgical s ite. She was given topical anesthesia, and then prepped and draped in the usual sterile fashion. Th e eye was entered at the 6 and 3 o'clock positions. Intracameral Shugarcaine was injected into the a nterior chamber, followed by Viscoat. A continuous-tear curvilinear capsulorrhexis was performed. T he nucleus was hydrodissected and phacoemulsified. The cortex was evacuated using automated infusion and aspiration. Provisc was injected in the capsular bag, and a 21.5 diopter intraocular lens inser jamarcus in the bag. Approximately 0.8 mL of a mixture of triamcinolone, moxifloxacin, and vancomycin was injected subconjunctivally in the superior quadrant for infection and inflammation prophylaxis. I a nd A was used to evacuate the viscoelastic material. The eye was inflated to physiologic pressure us ing balanced salt solution and found to be watertight. The patient was taken from the operating room in good condition and given postop instructions. TD: 12/15/2017 08:31
== END 2017-12-15 06:41 | disposition home or self-care (01) ==
LOC: SDS 06:40
PROVIDERS: ATTEND Ophthalmology
PROC: 08RK3JZ Replacement of Left Lens with Synthetic Substitute, Percutaneous Approach (ICD-10-PCS; principal; 2017-12-15 08:00)
DX: H25.812 Combined forms of age-related cataract, left eye (principal); H35.3130 Nonexudative age-related macular degeneration, bilateral, stage unspecified; E11.36 Type 2 diabetes mellitus with diabetic cataract; E11.3299 Type 2 diabetes mellitus with mild nonproliferative diabetic retinopathy without macular edema, unspecified eye; Z79.4 Long term (current) use of insulin; J45.909 Unspecified asthma, uncomplicated; I11.0 Hypertensive heart disease with heart failure; I50.9 Heart failure, unspecified
CPT/HCPCS: 66984; A9270; J3490; J7120; V2632

== ENCOUNTER 2017-12-26 13:08 | Outpatient (CLI) | payer MEDICARE, OTHER | END 2017-12-26 13:09 | disposition home or self-care (01) | LOC: RT 13:08 | PROVIDERS: ATTEND Physician Assistant Medical | DX: J45.998 Other asthma (principal) | CPT/HCPCS: 94010; 94729 ==

== ENCOUNTER 2018-01-11 11:20 | Outpatient (CLI) | payer MEDICARE, OTHER ==
[2018-01-11 19:33] LABS: BASOPHILS # (AUTO) 0.1 10^3/uL (0.0-0.1); EOSINOPHILS # (AUTO) 0.3 10^3/uL (0.0-0.7); EOSINOPHILS % (AUTO) 4.3 %; HGB - HEMOGLOBIN 12.4 g/dL (12.0-16.0); LYMPHOCYTES # (AUTO) 1.6 10^3/uL (1.5-3.5); LYMPHOCYTES % (AUTO) 21.4 %; MEAN CORPUSCULAR HEMOGLOBIN 29.5 pg (27.0-31.0); MEAN CORPUSCULAR HGB CONC 33.4 g/dL (32.0-36.0); MEAN CORPUSCULAR VOLUME 88.5 fL (81.0-99.0); MEAN PLATELET VOLUME 8.8 fL (7.9-10.8); MONOCYTES # (AUTO) 0.8 10^3/uL (0.0-1.0); MONOCYTES % (AUTO) 10.1 %; NEUTROPHILS # (AUTO) 4.8 10^3/uL (1.5-6.6); NEUTROPHILS % (AUTO) 63.2 %; PLT - PLATELET COUNT 311 10^3/uL (130-450); RED CELL DISTRIBUTION WIDTH 14.9 % (12.0-15.0); WHITE BLOOD COUNT 7.7 x10^3/uL (4.8-10.8)
[2018-01-11 19:57] LABS: % IRON SATURATION 25 % (20-50); IRON 75 ug/dL (28-170); TOTAL IRON BINDING CAPACITY 305 ug/dL (250-450); TRANSFERRIN 218 mg/dL (192-382)
[2018-01-11 20:03] LABS: FERRITIN 191.3 ng/mL (11.0-306.8)
[2018-01-11 22:25] LABS: FOLATE 21.36 ng/mL (5.90 - >24.8)
== END 2018-01-11 11:21 | disposition home or self-care (01) ==
LOC: LAB.WCP 11:20
PROVIDERS: ATTEND Physician Assistant Medical
DX: R53.83 Other fatigue (principal); E11.9 Type 2 diabetes mellitus without complications; J18.9 Pneumonia, unspecified organism
CPT/HCPCS: 36415; 82607; 82728; 82746; 83540; 84466; 85025

== ENCOUNTER 2018-01-26 07:34 | Outpatient (CLI) | payer MEDICARE, OTHER ==
[2018-01-26 13:26] LABS: CHOL/HDL RATIO 3.4 (<4.4); CHOLESTEROL 137 mg/dL; HDL CHOLESTEROL 40 mg/dL; LDL CHOLESTEROL,CALCULATED 67 mg/dL; LDL/HDL RATIO 1.7 (<4.4); VLDL CHOLESTEROL 30 mg/dL
[2018-01-26 14:11] LABS: HB2 TOTAL 13.9 g/dL; HEMOGLOBIN A1C 0.77 g/dL; HEMOGLOBIN A1C % 7.2 % (4.6-6.2)
== END 2018-01-26 07:35 | disposition home or self-care (01) ==
LOC: LAB.WCP 07:34
PROVIDERS: ATTEND Physician Assistant
DX: E78.5 Hyperlipidemia, unspecified (principal); E11.9 Type 2 diabetes mellitus without complications
CPT/HCPCS: 36415; 80061; 83036; 83721

== ENCOUNTER 2018-04-25 08:00 | Outpatient (CLI) | payer MEDICARE, OTHER ==
[2018-04-25 13:02] LABS: CALCIUM 9.4 mg/dL (8.5-10.3); CREATININE 1.2 mg/dL (0.4-1.0)
[2018-04-25 13:21] LABS: HB2 TOTAL 13.8 g/dL; HEMOGLOBIN A1C 0.7 g/dL; HEMOGLOBIN A1C % 6.8 % (4.6-6.2)
== END 2018-04-25 23:59 | disposition home or self-care (01) ==
LOC: LAB.WCP 08:00
PROVIDERS: ATTEND Physician Assistant Medical
DX: E11.9 Type 2 diabetes mellitus without complications (principal)
CPT/HCPCS: 36415; 80048; 83036

== ENCOUNTER 2018-07-26 08:00 | Outpatient (CLI) | payer MEDICARE, OTHER ==
[2018-07-26 13:44] LABS: HB2 TOTAL 14.6 g/dL; HEMOGLOBIN A1C 0.75 g/dL; HEMOGLOBIN A1C % 6.9 % (4.6-6.2)
[2018-07-26 13:50] LABS: ALBUMIN 4.1 g/dL (3.2-5.5); ALBUMIN/GLOBULIN RATIO 1.3 (1.0-2.2); ALKALINE PHOSPHATASE 64 IU/L (42-121); ALT ALANINE AMINOTRANSFERASE 17 IU/L (10-60); AST ASPARTATE AMINOTRANSFERASE 26 IU/L (10-42); BILIRUBIN,TOTAL 0.9 mg/dL (0.2-1.0); BUN - BLOOD UREA NITROGEN 19 mg/dL (6-20); CALCIUM 9.4 mg/dL (8.5-10.3); CARBON DIOXIDE - CO2 30 mmol/L (21-32); CHLORIDE 100 mmol/L (101-111); CHOL/HDL RATIO 2.4 (<4.4); CHOLESTEROL 129 mg/dL; GFR - MDRD 53 (>89); GLUCOSE 97 mg/dL (70-100); HDL CHOLESTEROL 53 mg/dL; LDL CHOLESTEROL,CALCULATED 51 mg/dL; SODIUM 139 mmol/L (135-145); TOTAL PROTEIN 7.3 g/dL (6.7-8.2); VLDL CHOLESTEROL 25 mg/dL
== END 2018-07-26 23:59 | disposition home or self-care (01) ==
LOC: LAB.WCP 08:00
PROVIDERS: ATTEND Physician Assistant Medical
DX: E11.9 Type 2 diabetes mellitus without complications (principal)
CPT/HCPCS: 36415; 80053; 80061; 83036; 83721

== ENCOUNTER 2018-08-15 14:09 | Outpatient (CLI) | payer MEDICARE, OTHER ==
--- NOTE | 2018-08-16 08:53 | Mammography Report ---
Reason: SCREENING MAMMO Procedure Date: 08/15/2018 Accession Number: [id number] / [id number] Procedure: [facility]N - Screening Mammo Dig Bilat CPT Code: FULL RESULT: EXAM: Screening Mammo Dig Bilat DATE: 08/15/2018 2:33 PM CLINICAL HISTORY: Screening encounter. No reported risk factors. TECHNIQUE: (B) - Bilateral CC, laterally exaggerated CC, MLO views were obtained. COMPARISON: 07/08/2017 through 12/15/2012. PARENCHYMAL PATTERN: (A) - The breasts demonstrate scattered fibroglandular densities bilaterally. FINDINGS: There are typically benign vascular calcifications. Apparent nodule in the right breast seen on the cc view only, current study and 2018 study is felt to represent the nipple, not in profile. The right cc view is technically inadequate. There are no suspicious masses, calcifications, or areas of distortion. IMPRESSION: Incomplete examination. BI-RADS category 0. RECOMMENDATION: (REPEAT) - repeat of the right CC view, nipple not in profile. BI-RADS CATEGORY: (0) - Incomplete Examination - need additional evaluation. STANDARD QUALIFYING STATEMENTS: 1. This examination was reviewed with the aid of Computer-Aided Detection (CAD). 2. A negative or benign imaging report should not preclude biopsy if clinically suspicious findings are present. 3. Dense breasts may obscure an underlying neoplasm. 4. This examination was reviewed without the aid of 3D breast imaging (tomosynthesis).
== END 2018-08-15 14:10 | disposition home or self-care (01) ==
LOC: DI.N 14:09
DX: Z12.31 Encounter for screening mammogram for malignant neoplasm of breast (principal)
CPT/HCPCS: 77067

== ENCOUNTER 2018-08-25 11:40 | Outpatient (CLI) | payer MEDICARE, OTHER ==
--- NOTE | 2018-08-25 12:56 | Mammography Report ---
Reason: TECH REPEAT - NO CHARGE - ROUTINE MAMMO Procedure Date: 08/25/2018 Accession Number: [id number] / [id number] Procedure: MENA - No Charge Procedure CPT Code: FULL RESULT: EXAM: No Charge Procedure DATE: 08/25/2018 12:37 PM CLINICAL HISTORY: TECH REPEAT - NO CHARGE - ROUTINE MAMMO TECHNIQUE: Repeat right CC unilateral mammogram with nipple markers. COMPARISON: 07/08/2017 FINDINGS: Repeat imaging with the nipple in profile is unremarkable. No further workup required. Recommend annual screening mammogram. IMPRESSION: Normal repeat right CC mammogram with nipple markers. No subareolar abnormality.
--- NOTE | 2018-08-28 08:40 | Mammography Report ---
Reason: ROUTINE MAMMO Procedure Date: 08/25/2018 Accession Number: [id number] / [id number] Procedure: MENA - Screening Mammo Dig Bilat CPT Code: FULL RESULT: EXAM: Screening Mammo Dig Bilat DATE: 08/25/2018 12:37 PM CLINICAL HISTORY: Technical recall for right CC images. TECHNIQUE: (R) - Right CC image COMPARISON: 08/15/2018 through 12/15/2012. PARENCHYMAL PATTERN: (A) - The breast(s) demonstrate(s) scattered fibroglandular densities. FINDINGS: There are no suspicious masses, calcifications, or areas of distortion. IMPRESSION: Negative examination. BI-RADS category 1. RECOMMENDATION: (ANNUAL) - Recommend routine annual screening mammography. BI-RADS CATEGORY: (1) - Negative. STANDARD QUALIFYING STATEMENTS: 1. This examination was not reviewed with the aid of Computer-Aided Detection (CAD). 2. A negative or benign imaging report should not preclude biopsy if clinically suspicious findings are present. 3. Dense breasts may obscure an underlying neoplasm. 4. This examination was reviewed without the aid of 3D breast imaging (tomosynthesis).
== END 2018-08-25 11:41 | disposition home or self-care (01) ==
LOC: DI 11:40
PROVIDERS: ATTEND Physician Assistant Medical
DX: Z12.31 Encounter for screening mammogram for malignant neoplasm of breast (principal)
CPT/HCPCS: 77067

== ENCOUNTER 2019-05-10 07:00 | Outpatient (CLI) | payer MEDICARE, OTHER ==
[2019-05-10 12:49] LABS: CALCIUM 9.5 mg/dL (8.5-10.3); CREATININE 1.3 mg/dL (0.4-1.0)
[2019-05-10 13:11] LABS: HB2 TOTAL 12.9 g/dL; HEMOGLOBIN A1C 0.7 g/dL; HEMOGLOBIN A1C % 7.1 % (4.6-6.2)
== END 2019-05-10 23:59 | disposition home or self-care (01) ==
LOC: LAB.WCP 07:00
PROVIDERS: ATTEND Physician Assistant Medical
DX: E11.9 Type 2 diabetes mellitus without complications (principal)
CPT/HCPCS: 36415; 80048; 83036

== ENCOUNTER 2019-09-10 11:35 | Outpatient (CLI) | payer MEDICARE, OTHER | END 2019-09-10 11:36 | disposition short-term general hospital (02) | LOC: EMS 11:35 | PROVIDERS: ATTEND Surgery | DX: R06.02 Shortness of breath (principal); R55 Syncope and collapse; R11.0 Nausea | CPT/HCPCS: A0425; A0427 ==